=== PATIENT | female | born 1985 | race Caucasian/White ===

== ENCOUNTER 2017-02-03 09:11 | Emergency (ER) | payer MEDICAID ==
--- NOTE | 2017-02-05 13:15 | ER ---
ADMIT: 02/03/2017 RM/LOC: [facility] MR#: [id number] [address] [facility] [place], [place] [id number] [address] [place] [address] Emergency Room Report SEX: F AGE: 31 : 1985 DATE: 02/03/2017 BRIEF ADDENDUM: Please see my T-sheet for complete review of systems, past medical history, and physical exam. CHIEF COMPLAINT: Fall. HISTORY OF PRESENT ILLNESS: A pleasant 31-year-old, white female, who presents to the ED after slipping in the rain last night. She states she slipped on somewhat concrete and hit the right side of her head. There was no loss of consciousness. She returned home and gradually throughout the night, she had increasing headache and nausea. Admits to some phonophobia and photophobia. She has a known history of migraine, tried Imitrex prior to arrival. Also with the chiropractor, which she states improved some of her neck pain, however this did not improve her headache. She remembers the event. Denies any weakness, numbness, or problems with vision. PAST MEDICAL HISTORY: Anxiety. COURSE IN THE EMERGENCY ROOM: PHYSICAL EXAMINATION: GENERAL: The patient is seen and examined. She is afebrile and nontoxic. She is in no acute distress. HEENT: She does have some tenderness to the right side of her occiput. No obvious deformity. No Raccoon sign or Urban's sign. Eyes are equal and reactive. Extraocular muscles are intact. ENT; airway is normal. No dental injuries. NECK: Soft and nontender. She has a painless range of motion. HEART: Regular rate and rhythm. ABDOMEN: Soft and nontender. NEURO: She is alert and oriented. Cranial nerves are normal as tested. Sensation is equal in the upper and lower extremities compared bilaterally. Motor is intact in the upper lower extremities bilaterally. She is able to ambulate without difficulty. Mood and affect appropriate. SKIN: Warm and dry. No vertebral tenderness. EXTREMITIES: Nontender. She is able to ambulate on her own power. She was given Reglan 10 mg IM, Toradol 50 mg IM, and Benadryl 25 mg IM. She ADMIT: 02/03/2017 RM/LOC: [facility] MR#: [id number] [address] [facility] [address] [place], [place] [address] [address] [place] [address] Emergency Room Report SEX: F AGE: 31 : 1985 states this improved her migraine headache. IMPRESSION: 1. Right-sided occipital contusion. 2. Migraine headache. DISPOSITION: The patient is to return home. Continue her home medications. Increase fluids as tolerated. Return with worsening signs or symptoms, and follow up with Dr. Mccullough. Tylenol or Motrin as needed for pain. Return home and rest. Apply ice to the head as needed for pain and swelling. Questions sought and answered to the best of my ability and to the patient's satisfaction. She is discharged in stable condition. RIVKA Lawton / Marbin Avelar MD / deborah JOB #: [id number] CC: Marbin Avelar MD, Attending Physician RIVKA Lamas, Family Physician
== END 2017-02-03 12:00 | disposition home or self-care (01) ==
LOC: ER 09:11
DX: S00.03XA Contusion of scalp, initial encounter (principal); G43.909 Migraine, unspecified, not intractable, without status migrainosus; F17.210 Nicotine dependence, cigarettes, uncomplicated; F41.9 Anxiety disorder, unspecified; Z88.8 Allergy status to other drugs, medicaments and biological substances; W01.0XXA Fall on same level from slipping, tripping and stumbling without subsequent striking against object, initial encounter; Y92.410 Unspecified street and highway as the place of occurrence of the external cause

== ENCOUNTER 2017-02-23 16:29 | Emergency (ER) | payer SELFPAY ==
--- NOTE | 2017-03-04 14:22 | ER ---
ADMIT: 02/23/2017 RM/LOC: [facility] MR#: [id number] [address] [facility] [place], [place] [address] [address] [place] [address] Emergency Room Report SEX: F AGE: 31 : 1985 DATE: 02/23/2017 ADDENDUM: CHIEF COMPLAINT: Left elbow pain. HISTORY OF PRESENT ILLNESS: This is a 31-year-old female, who got her arm caught in a door. An x-ray was done, it was negative for any fracture. CLINICAL IMPRESSION: Contusion to left elbow. RIVKA Ramirez / Alfredo Hoffman MD / deborah JOB #: [id number] CC: Alfredo Hoffman MD, Attending Physician UNKNOWN, Family Physician
== END 2017-02-23 17:10 | disposition home or self-care (01) ==
LOC: ER 16:29
DX: S50.02XA Contusion of left elbow, initial encounter (principal); F17.210 Nicotine dependence, cigarettes, uncomplicated; J45.909 Unspecified asthma, uncomplicated; F32.9 Major depressive disorder, single episode, unspecified; F41.9 Anxiety disorder, unspecified; Z90.710 Acquired absence of both cervix and uterus; Z98.890 Other specified postprocedural states; Z79.899 Other long term (current) drug therapy; Z88.2 Allergy status to sulfonamides; W23.1XXA Caught, crushed, jammed, or pinched between stationary objects, initial encounter